=== PATIENT | female | born 1950 | race Caucasian/White ===

== ENCOUNTER → 2016-08-15 10:36 | Outpatient (CLI) | payer BC | END | disposition home or self-care (01) | LOC: D.CT 10:36 | DX: J18.9 Pneumonia, unspecified organism (principal); R06.02 Shortness of breath ==

== ENCOUNTER 2016-09-21 21:33 | Observation (INO) | payer BC ==
[~2016-09-21] VITALS: Ht 157.5 cm; Wt 106.8 kg
--- NOTE | ~2016-09-21 | HEMODYNAMI ---
PATIENT:BRYNN MAIER MEDICAL RECORD: [id number] : 48 LOCATION:[facility].[address] [facility]# [id number] ADMISSION DATE: 09/22/16 Generatedon:09/22/201615:11 Patient name: BRYNN MAIER Patient #: [id number] SSN: : 1950 Date of study: 09/22/2016 Page: Of Hemodynamic Procedure Report Patient Data Patient Demographics Procedure consent was obtained First Name: BRYNN Gender: Female Last Name: DARRION : 1950 [facility] Initial: J Age: 65 year(s) Patient #: [id number] Race: Unknown Additional ID: [id number] Contact details [address]: [address] [place] [address] State: [place] City: [place] Zip code: [address] Admission Admission Data Admission Date: 09/22/2016 Admission Time: 1:41 Room #: 2115 Procedure Procedure Types Cath Procedure Diagnostic Procedure LHC LHC w/Coronaries Miscellaneous Procedures Moderate Sedation up to 30 minutes Procedure Description Procedure Date Procedure Date: 09/22/2016 Procedure Start Time: 14:39 Procedure End Time: 15:10 Procedure Staff Name Function Estuardo Del Valle MD Performing Physician Vanita Kathleen RN Nurse Durga Huff RT Monitor Balaji Ha RT Scrub Procedure Data Cath Procedure Fluoroscopy Diagnostic fluoroscopy Total fluoroscopy Time: 7.7 time: 7.7 min min Diagnostic fluoroscopy Total fluoroscopy dose: dose: 1115 mGy 1115 mGy Contrast Material Contrast Material Type Amount (ml) Isovue 300 125 Entry Location Entry Primary Successful Side Size Upsize Upsize Entry Closure Moore ccessful Closure Location (Fr) 1 (Fr) 2 (Fr) Remarks Device Remarks Radial Right 6 Fr Mechanical artery Short Compression Femoral Right 5 Fr 7 Fr Exoseal artery Short Estimated blood loss: 10 ml Diagnostic catheters Device Type Used For End Catheter Placement Terumo 5Fr [place] 110cm Procedure catheter Cordis 5Fr JL 4.0 Procedure Catheter (MP) Cordis 5Fr 3DRC Catheter Procedure (MP) Cordis 5Fr Pigtail Procedure Catheter (MP) Procedure Complications No complications Procedure Medications Medication Administration Route Dosage Oxygen NC 2 l/min Heparin Flush Bag added to field 2 bags (1000units/500ml NS) Lidocaine 2% added to field 20 Radial Cocktail added to field 1 syringe (Verapomil 2mg/Nitro 400mcg/Heparin 1500units) Versed I.V. 1 mg Fentanyl I.V. 50 mcg Versed I.V. 1 mg Fentanyl I.V. 50 mcg Radial Cocktail I.A. 1 syringe (Verapomil 2mg/Nitro 400mcg/Heparin 1500units) Versed I.V. 0.5 mg Versed I.V. 0.5 mg Heparin Bolus I.V. 5000 units Integrilin (Bolus I.V. 9.5 ml 2mg/ml) Versed I.V. 0.5 mg Hemodynamics Rest Heart Rate: 89 (bpm) Pressure Samples Time Site Value (mmHg) Purpose Heart Use Rate(bpm) 14:50 LV 131/-14,8 Snapshot 92 14:50 AO 128/67(93) Pullback 94 14:50 LV 110/14,3 Pullback 94 14:54 AO 86/45(57) Snapshot 93 Gradients Valve Time Site 1 Site 2 Mean SEP/DFP Peak To Heart Use (mmHg) (sec/min) Peak Rate (mmHg) (bpm) Aortic 14:50 LV AO 0 94 110/14,3 128/67(93) Calculations Valve P-P Mean Valve Index Valve Source Name Gradient Area Flow (cm2) Aortic 0 0 Snapshots Pre Cath Intra NCS Post Cath Vital Signs Time Heart Resp SPO2 NIBP (mmHg) Rhythm Pain Sedation Rate (ipm) (%) Status Level (bpm) 14:31:52 96 18 97 132/76(96) NSR 0 (11) 10(A) , No pain 14:36:14 96 20 98 147/75(110) NSR 0 (11) 10(A) , No pain 14:40:30 93 16 96 96/73(91) NSR 0 (11) 9(A) , No pain 14:45:21 91 19 98 116/71(82) NSR 0 (11) 9(A) , No pain 14:49:39 93 18 97 108/66(81) NSR 0 (11) 9(A) , No pain 14:53:53 92 20 97 122/68(83) NSR 0 (11) 9(A) , No pain 14:58:07 93 18 98 100/61(80) NSR 0 (11) 9(A) , No pain 15:02:19 91 18 98 118/66(87) NSR 0 (11) 9(A) , No pain 15:06:37 90 18 98 111/72(92) NSR 0 (11) 10(A) , No pain Medications Time Medication Route Dose Verified Delivered Reason Note s Effectiveness by by 14:08:18 Oxygen NC 2 l/min Vanita Vanita used for Kathleen Kathleen transport medic RN 14:08:26 Heparin Flush added 2 bags Vanita Vanita used for Bag to Kathleen Kathleen procedure (1000units/500ml field RN RN NS) 14:08:37 Lidocaine 2% added 20ml Vanita Vanita used for to vial Kathleen Kathleen procedure field RN RN 14:22:37 Radial Cocktail added 1 Vanita Vanita used for (Verapomil to syringe Kathleen Kathleen procedure 2mg/Nitro field RN RN 400mcg/Heparin 1500units) 14:35:00 Versed I.V. 1 mg Vanita Vanita for sedation Kathleen Kathleen RN RN 14:35:07 Fentanyl I.V. 50 mcg Vanita Vanita for sedation Kathleen Kathleen RN RN 14:37:22 Versed I.V. 1 mg Vanita Vanita for sedation Kathleen Kathleen RN RN 14:37:26 Fentanyl I.V. 50 mcg Vanita Vanita for sedation Kathleen Kathleen RN RN 14:39:38 Versed I.V. 0.5 mg Vanita Vanita for sedation Kathleen Kathleen RN RN 14:39:40 Radial Cocktail I.A. 1 Vanita Estuardo for (Verapomil syringe Kathleen Eligio vasodilation 2mg/Nitro RN MD 400mcg/Heparin 1500units) 14:45:16 Versed I.V. 0.5 mg Vanita Vanita for sedation Kathleen Kathleen RN RN 14:51:20 Heparin Bolus I.V. 5000 Vanita Vanita for units Kathleen Kathleen anticoagulation RN RN 14:51:34 Integrilin I.V. 9.5 ml Vanita Vanita for (Bolus 2mg/ml) Frannie Kathleen antiplatelet RN RN therapy 14:51:52 Versed I.V. 0.5 mg Vanita Waldron for sedation Frannie Kathleen RN pressure control supervisor Log Time Note 13:52:32 Time tracking: Regular hours 13:52:37 Plan of Care:Hemodynamics will remain stable., Cardiac rhythm will remain stable., Comfort level will be maintained., Respiratory function will remain adequate., Patient/ family verbilizes understanding of procedure., Procedure tolerated without complication., Recovers from procedure without complications.. 13:52:40 Durga POP(R) sent for patient. Start room use. 14:08:18 Oxygen 2 l/min NC was administered by Vanita Kathleen RN; used for procedure; 14:08:26 Heparin Flush Bag (1000units/500ml NS) 2 bags added to field was administered by Vanita Kathleen RN; used for procedure; 14:08:37 Lidocaine 2% 20ml vial added to field was administered by Vanita Kathleen RN; used for procedure; 14:18:07 Patient received from PCU to [facility] 2 Alert and oriented. Tansferred to table in Supine position. 14:18:08 Warm blankets applied, and doris hugger turned on for patient comfort. 14:18:08 Correct patient and procedure confirmed by team. 14:18:09 Signed procedure consent form obtained from patient. 14:18:10 ECG and BP/O2 sat monitors applied to patient. 14:22:37 Radial Cocktail (Verapomil 2mg/Nitro 400mcg/Heparin 1500units) 1 syringe added to field was administered by Vanita Kathleen RN; used for procedure; 14:30:33 Vital chart was started 14:30:34 Baseline sample Acquired. 14:30:36 Baseline sample Acquired. 14:30:41 Rhythm: sinus rhythm 14:30:43 Full Disclosure recording started 14:30:48 H&P Date Dictated: 09/21/2016 Within 30 days and on chart., H&P Addendum completed by physician on day of procedure. (MUST COMPLETE FOR ALL OUTPATIENTS). 14:30:49 Pre-procedure instructions explained to patient. 14:30:49 Pre-op teaching completed and patient verbalized understanding. 14:30:51 Family in waiting room. 14:30:52 Patient NPO since Midnight. 14:30:55 Is the patient allergic to Iodine/contrast media? No. 14:31:04 Is patient on blood thinner?No 14:32:12 Patient diabetic? No. 14:32:15 Patient not . Patient is over age 55. 14:32:17 Previous problem with sedation/anesthesia? No ? 14:32:31 Snore? Yes 14:32:39 Sleep apnea? No 14:32:40 Deviated septum? No 14:32:41 Opens mouth fully? Yes 14:32:42 Sticks out tongue? Yes 14:32:57 Airway obstruction? No ? 14:33:00 Dentures? Yes IN 14:33:05 Pre procedure: right dorsailis pedis pulse 1+ Palpable, but thready & weak; easily obliterated 14:33:07 Modified Jason's test Ulnar < 7 seconds 14:33:12 Patient pain scale 0/10 ?. 14:33:16 IV patent on arrival in right forearm with 0.9% NaCl at O. 14:33:19 Lab results completed and on chart. 14:33:23 Right Radial & Right Groin area was prepped with chlora-prep and draped in sterile fashion 14:33:24 Alarms reviewed by R. N. 14:33:25 Sharps counted by scrub and verified by R.N. 14:34:16 --------ALL STOP TIME OUT------ 14:34:17 Final Timeout: patient, procedure, and site verified with staff and physician. All members of the team are in agreement. 14:34:19 Right Radial & Right Groin site verified by team. 14:34:22 Physical assessment completed. ASA score P 2 - A patient with mild systemic disease as per Estuardo Del Valle MD. 14:34:24 Sedation plan: IV Moderate Sedation Versed, Fentanyl 14:35:00 Versed 1 mg I.V. was administered by Vanita Kathleen RN; for sedation; 14:35:07 Fentanyl 50 mcg I.V. was administered by Vanita Kathleen RN; for sedation; 14:37:22 Versed 1 mg I.V. was administered by Vanita Kathleen RN; for sedation; 14:37:26 Fentanyl 50 mcg I.V. was administered by Vanita Kathleen RN; for sedation; 14:39:19 Procedure started. 14:39:24 Local anesthetic to right radial artery with Lidocaine 2% by Estuardo Del Valle MD.INITIAL ACCESS ONLY 14:39:38 Versed 0.5 mg I.V. was administered by Vanita Kathleen RN; for sedation; 14:39:40 Radial Cocktail (Verapomil 2mg/Nitro 400mcg/Heparin 1500units) 1 syringe I.A. was administered by Estuardo Del Valle MD; for vasodilation; 14:39:40 A 6 Fr Short sheath was inserted into the Right Radial artery 14:40:01 Use device set Radial Dx 14:40:02 Tegaderm 4 x 4 opened to sterile field. 14:40:03 Acist Hand Control opened to sterile field. 14:40:04 Acist Manifold opened to sterile field. 14:40:05 Acist Syringe opened to sterile field. 14:40:05 Medline Cath Pack opened to sterile field. 14:40:05 Bag Decanter opened to sterile field. 14:40:06 Terumo 6Fr Slender Glidesheath opened to sterile field. 14:40:06 St Kedar 260cm J .035 wire opened to sterile field. 14:40:07 MBrace Wrist Support opened to sterile field. 14:40:20 A Terumo 5Fr [place] 110cm catheter was advanced over the wire and used for Procedure. 14:41:33 Terumo ANGLE 260cm glide wire opened to sterile field. 14:43:02 Glidewire used to advance catheter. 14:43:51 Unable to advance catheter due to anantomy. Moving to Femoral approach. 14:43:56 Catheter removed. 14:44:05 Use device set Multipack Set 14:44:10 Terumo 5Fr [place] Sheath opened to sterile field. 14:44:11 Diagnostic Infinity 5Fr Multipack catheter opened to sterile field. 14:45:16 Versed 0.5 mg I.V. was administered by Vanita Kathleen RN; for sedation; 14:45:42 Local anesthetic to right femoral artery with Lidocaine 2% by Estuardo Del Valle MD.ADDITIONAL ACCESS 14:46:10 A 5 Fr sheath was inserted into the Right Femoral artery 14:46:16 A Cordis 5Fr JL 4.0 Catheter () was advanced over the wire and used for Procedure. 14:47:14 IV Extension Set opened to sterile field. 14:47:27 Catheter removed. 14:47:34 A Cordis 5Fr 3DRC Catheter (MP) was advanced over the wire and used for Procedure. 14:49:11 RCA angiography performed. 14:49:16 Catheter removed. 14:49:21 A Cordis 5Fr Pigtail Catheter (MP) was advanced over the wire and used for Procedure. 14:50:43 Terumo 7Fr [place] Sheath opened to sterile field. 14:50:44 Advice Walletisper J 300cm 0.014 guide wire opened to sterile field. 14:50:45 HistoRx Launcher 7Fr HS I SH guide catheter opened to sterile field. 14:50:49 Firstmonie BasixCompak Inflation Kit opened to sterile field. 14:51:03 LV angiography performed. 14:51:05 LV gram done using ANAYA 14:51:09 EF : 55 % 14:51:11 LV hemodynamics recorded. 14:51:13 Injector settings: Ml/sec: 10, Volume: 20, 14:51:14 Catheter removed. 14:51:20 Heparin Bolus 5000 units I.V. was administered by Vanita Kathleen RN; for anticoagulation; 14:51:33 Sheath upsized to a 7 Fr Short. 14:51:34 Integrilin (Bolus 2mg/ml) 9.5 ml I.V. was administered by Vanita Kathleen RN; for antiplatelet therapy; 14:51:52 Versed 0.5 mg I.V. was administered by Vanita Kathleen RN; for sedation; 14:52:16 7 Fr HS 1 SH guide catheter was inserted over the wire 14:52:44 Whisper wire advanced. 14:57:16 Wire advanced across lesion. 14:58:38 [place] 3.0x15 balloon advanced. 14:58:41 The [place] Sci [place] 3.0 X 15 balloon was advanced and then removed because of failure to cross lesion 15:00:53 [place] 1.5x15 balloon advanced. 15:01:55 The [place] Sci [place] 1.5 X 15 balloon was advanced and then removed because of failure to cross lesion 15:04:18 Wire removed. 15:04:18 Guide catheter removed. 15:04:28 Sheath removed intact; hemostasis achieved with Exoseal to the Right Femoral artery. 15:04:41 Cordis 7Fr Exoseal opened to sterile field. 15:04:54 Procedure ended.(Physican Out) 15:05:47 Fluoroscopy time 07.70 minutes. 15:05:53 Fluoroscopy dose: 1115 mGy 15:05:53 Flurop Dose total: 1115 15:06:01 Contrast amount:Isovue 300 125ml. 15:06:13 Sharps counted by scrub and verified by R.N. 15:06:22 Sheath removed intact; hemostasis achieved with Mechanical Compression to the Right Radial artery. 15:06:27 TR band inflated with 10cc of air. 15:06:28 Insertion/operative site no bleeding no hematoma. 15:06:31 Post-op/insertion site Right Femoral artery dressed using a 4 x 4 and Tegaderm. 15:06:32 Post Procedure Pulses reassessed and unchanged 15:06:34 Post-procedure physical assessment completed. ASA score P 2 - A patient with mild systemic disease as per Estuardo Del Valle MD. 15:06:37 Post procedure rhythm: unchanged. 15:06:39 Estimated blood loss: 10 ml 15:06:40 Post procedure instruction explained to patient.Patient verbalizes understanding. 15:06:41 Patient needs reinforcement of post procedure teaching. 15:06:57 Procedure type changed to Cath procedure, Diagnostic procedure, LHC, LHC w/Coronaries, Miscellaneous Procedures, Moderate Sedation up to 30 minutes 15:07:02 Procedure Complication : No complications 15:08:17 Procedure and supply charges have been captured, reviewed, submitted and are correct. 15:10:12 Vital chart was stopped 15:10:13 See physician's report for complete and final results. 15:10:21 Report given to PCU. 15:10:25 Patient transfered to PCU with Bed. 15:10:28 Procedure ended. 15:10:28 Full Disclosure recording stopped 15:10:54 End room use (Document Last) Intervention Summary Intervention Notes Time ActionType Lesion and Equipment Action# Pressure Duration Attributes Used 14:58:41 Discard [place] Balloon Sci [place] 3.0 X 15 balloon 15:01:55 Discard [place] Balloon Sci [place] 1.5 X 15 balloon Device Usage Item Name Manufacture Quantity Catalog Number Hospital Part Current Mini [facility] Lot# / Charge Number Stock Stock Serial# Code Tegaderm 4 3M 1 162 [id number] 456998 286829 5 x 4 Acist Hand Acist 1 71099 410726 432379 935835 5 Control Medical Systems Inc Acist Acist 1 86329 542788 203411 814843 5 Manifold Medical Systems Inc Acist Acist 1 67648 130557 709557 776489 20 Syringe Medical Systems Inc Medline Cardinal 1 [id number] 454755 77734 584579 5 Cath Pack Health Bag Microtek 1 2002S 709069 29807 006567 5 Decanter Medical Inc. Terumo 6Fr Terumo 1 [id number] 372945 521571 660068 [address] Kedar 1 351773 765118 844833 257613 30 260cm J .035 wire MBrace Advanced 1 140-0250-00 617499 39700 038923 5 Wrist Vascular Support Dynamics Terumo 5Fr Terumo 1 40-1612 477271 389248 742952 5 [place] 110cm catheter Terumo Terumo 1 [id number] 499832 081610 634511 5 ANGLE 260cm glide wire Terumo 5Fr Terumo 1 [id number] 024122 866313 223673 40 [place] Sheath Diagnostic Cardinal 1 [id number] 464748 76525 906155 30 Infinity Health 5Fr Multipack catheter Cordis 5Fr Cardinal 1 787774 5 JL 4.0 Health Catheter (MP) IV Hospira 1 89528-55 869718 90646 251199 5 Extension Set Cordis 5Fr Cardinal 1 587572 5 3DRC Health Catheter (MP) Cordis 5Fr Cardinal 1 307944 5 Pigtail Health Catheter (MP) Terumo 7Fr Terumo 1 NRP662 577729 601942 533466 5 [place] Sheath Nicole Nicole 1 [id number] 018665 571767 116326 5 Whisper J Vascular 300cm 0.014 guide wire Medtronic Medtronic 1 [id number] 543703 039355 156153 0 Launcher 7Fr HS I SH guide catheter Merit Merit 1 AL9251 496489 127038 982559 15 BasixBlockBeacon Medical Inflation Kit [place] Sci [place] 1 [id number] 170665 224863 790248 1 [id number] Neurolink 1.5 X 15 balloon [place] Sci [place] 1 [id number] 660351 561259 553815 1 [id number] [place] Scientific 3.0 X 15 balloon Cordis 7Fr Cardinal 1 EX700 700936 762269 249022 5 Exoseal Health Signature Audit Ault Stage Time Signature Unsigned Intra-Procedure 09/22/2016 Durga Huff 3:11:34 PM RT(R) Signatures Monitor : Durga Huff RT Signature : Date : Time : [place] [address] [place] [address]
[2016-09-22] LABS: HEMATOCRIT 38.1 % (36.0-48.0); LYMPHOCYTES 18.7 % (15-50); MCH 30.6 pg (26.0-34.0); MCHC 34.1 g/dL (31.0-37.0); MCV 89.6 fL (80.0-100.0); MEAN PLATELET VOLUME 8.7 fL (7.4-10.4); NEUTROPHILS 73.9 % (40-80); RBC 4.25 10x6/uL (4.00-5.40); RDW 13.1 % (11.5-14.5); WBC 14.3 10x3/uL (4.8-10.8)
[2016-09-22 00:07] LABS: PLATELET COUNT 313 10x3/uL (130-400)
[2016-09-22 00:32] LABS: ANION GAP 14.2 mmol/L (8-16); BILIRUBIN - TOTAL 0.76 mg/dL (0.2-1.3); CALCIUM 8.8 mg/dL (8.5-10.1); CARBON DIOXIDE 29.3 mmol/L (21.0-32.0); POTASSIUM - SERUM 3.5 mmol/L (3.5-5.1); PROTEIN - SERUM 7.7 g/dL (6.4-8.2)
[2016-09-22 00:45] LABS: TROPONIN-I 0.163 ng/mL (0.000-0.060)
--- NOTE | 2016-09-22 03:00 | NUR ---
RECIEVED TO ROOM 2114 FROM ER VIA . PT A&O. VITALS STABLE. 02 AT 2 LITER VIA NC. IV TO RIGHT FOREARM SL, SITE CLEAN AND DRY. PT DENIES HAVING ANY PAIN. MED REC AND HISTORY OBTAINED. WILL CONT TO MONITOR.
[2016-09-22] MEDS ORDERED: LASIX40 MG PO (03:05)
[2016-09-22] MEDS ORDERED: MIRAPEX1.5 MG PO (03:06)
[2016-09-22 03:42] VITALS: BP 155/71; Ht 157.5 cm; Wt 106.8 kg
--- NOTE | 2016-09-22 03:44 | NUR ---
PLACED ON TELEMETRY, 95 SR. WILL CONT TO MONITOR.
[2016-09-22 04:00] VITALS: BP 155/71
--- NOTE | 2016-09-22 07:30 | NUR ---
RECEIVED PT QUIETLY DENIES ANY NEEDS OR DISCOMFORT AT THIS TIME NAD NOTED
[2016-09-22 07:54] VITALS: BP 162/72
[2016-09-22 08:45] LABS: BASOPHILS 0.3 % (0-2); EOSINOPHILS 3.3 % (0-7); HEMATOCRIT 38.6 % (36.0-48.0); HEMOGLOBIN 12.6 g/dL (12-16); IMMATURE GRANULOCYTES 0.9 % (0-5); LYMPHOCYTES 20.7 % (15-50); MCH 30.9 pg (26.0-34.0); MCHC 32.6 g/dL (31.0-37.0); MEAN PLATELET VOLUME 10.1 fL (7.4-10.4); MONOCYTES 8.5 % (2-11); NEUTROPHILS 66.3 % (40-80); PLATELET COUNT 286 10x3/uL (130-400); RBC 4.08 10x6/uL (4.00-5.40); RDW 13.3 % (11.5-14.5); WBC 12.9 10x3/uL (4.8-10.8)
[2016-09-22 08:46] LABS: ANION GAP 13.8 mmol/L (8-16); CALCIUM 8.5 mg/dL (8.5-10.1); CARBON DIOXIDE 27.7 mmol/L (21.0-32.0); POTASSIUM - SERUM 3.5 mmol/L (3.5-5.1)
[2016-09-22 08:47] LABS: MCV 94.6 fL (80.0-100.0)
[2016-09-22 12:01] VITALS: BP 162/67
--- NOTE | 2016-09-22 14:25 | NUR ---
TO ACUTE CARE NURSE PRACTITIONER VIA BED IN STABLE CONDITION
--- NOTE | 2016-09-22 15:30 | NUR ---
RECEIVED PT BACK FROM DIGITAL PRODUCTION ARTIST VIA BED VSS RT WRIST TR BAND INTACT SITE NOTED WITH NO S/S OF BLEEDING RT GROIN DRSG CDI PPPX4 NO SIGNS BLEEDING
[2016-09-22 16:41] VITALS: BP 107/59
[2016-09-22 20:00] VITALS: BP 135/64
--- NOTE | 2016-09-22 20:39 | NUR ---
DR. TOURE FOR COUGH MEDICINE. AWAITING CALL BACK
[2016-09-23] VITALS: BP 145/68
--- NOTE | 2016-09-23 00:34 | NUR ---
PROTOTYPE ENGINEER MANAGER AT BEDSIDE TO OBTAIN VITALS, CALL LIGHT IN REACH. WILL CONTINUE WITH PLAN OF CARE.
--- NOTE | 2016-09-23 06:30 | NUR ---
NO CHANGES FROM PREVIOUS ASSESSMENT, CALL LIGHT IN REACH.
--- NOTE | 2016-09-23 07:30 | NUR ---
RECEIVED PT IN BED SITTING ON SIDE OF BED AAAOX4 RESP UNLABORED ON ROOM AIR DENIES ANY NEEDS OR DISCOMFORT NAD NOTED
[2016-09-23 08:25] VITALS: BP 139/82
--- NOTE | 2016-09-23 08:26 | OP ---
PATIENT NAME: BRYNN MAIER MEDICAL RECORD: [id number] :48 LOCATION:D.M2 D.2115 ADMISSION DATE:09/22/16 SURGEON: ERICA BE MD DATE OF OPERATION: 09/22/2016 PROCEDURES: Left heart catheterization, selective coronary angiography, right femoral artery approach. CATHETERS: A 5-Monegasque sheath, 5/4 left and right Tom, 5/4 pig. The procedure was well tolerated. The patient returned to escoto. Sheath was removed. ExoSeal device was placed. FINDINGS: Left ventriculography in 30-degree ANAYA view: Normal wall motion, normal systolic function. CORONARY ANATOMY: LEFT MAIN: Left main is free of disease. LAD: Free of disease in the diagonal system. CIRCUMFLEX: Free of disease in the marginal system. RIGHT CORONARY ARTERY: Dominant artery, gives rise to PDA, it is totally occluded and fills very well via [id number] collaterals. IMPRESSION: Single-vessel coronary artery disease. Given the elevated enzymes, we changed that for a 7-Monegasque sheath and I used a hockey stick guide catheter. We will place a Whisper wire across the totally occluded right; however, we were unable to place the balloon distally, more consistent with ____ occlusion. Procedure was stopped at this point. We will plan to treat medically. TRANSINT:[id number] Voice Confirmation ID: [id number] DOCUMENT ID: [id number] ERICA BE MD at 0826 CC: [id number] DICTATION DATE: 09/22/16 1508 HEEL FORMER: 09/23/16 0020 ADM IN [facility] [address] [place] [address]
[2016-09-23] MEDS ORDERED: ASPIRIN81 MG PO (09:52)
[2016-09-23] MEDS ORDERED: PLAVIX75 MG PO (09:53)
[2016-09-23] MEDS ORDERED: ZPAK PO (09:54)
[2016-09-23] MEDS ORDERED: LOPRESSOR25 MG PO (10:05)
[2016-09-23] MEDS ORDERED: ROBITUSSIN AC (10 M1 PO (10:11)
--- NOTE | 2016-09-23 11:13 | NUR ---
REVIEWED DISCHARGE INSTRUCTIONS WITH PT STATES UNDERSTANDING COPY GIVEN DCD SALINE LOCK TO RFA WITH IV CATHETER INTACT NO REDNESS OR EDEMA NOTED TO SITE PT DISCHARGED HOME IN STABLE CONDITION LEFT UNIT VIA W/C WITH ALL PERSONAL BELONGINGS
--- NOTE | 2016-09-26 13:19 | DS ---
PATIENT:BRYNN MAIER :[birth year] MEDICAL RECORD: [id number] DISCHARGE SUMMARY ADMISSION DATE: 09/22/16 DISCHARGE DATE: 09/23/16 DISCHARGE DIAGNOSES: 1. Acute coronary syndrome secondary to demand ischemia secondary to upper respiratory tract infection. 2. Probable obstructive coronary artery disease. 3. Acute viral bronchitis. BRIEF HISTORY AND HOSPITAL COURSE: The patient admitted with chest pain, cough, was found to have elevated cardiac enzymes, angiography showed totally occluded graft with left to right collaterals felt and no other significant coronary artery disease. LV function was normal, felt that this more demand ischemia, was started on oral antibiotics ____ and discharged home in good condition. Follow up with primary care myself in 1 month. DIET: AHA diet. She will be placed on beta sinan, Plavix empirically. TRANSINT:[id number] Voice Confirmation ID: [id number] DOCUMENT ID: [id number] ERICA BE MD at 1319 CC: [id number] DICTATION DATE: 09/23/16822 FLOODPLAIN MANAGER: 09/24/16 0241 DIS IN 09/23/16 [place] [address] [place] [address]
== END 2016-09-23 11:13 | disposition home or self-care (01) ==
LOC: D.ER 21:33 → D.M2 09-22 01:41 → OBSVTIME 09-22 01:41 → D.M2 09-23 11:13
PROVIDERS: Family Medicine; ADMIT Internal Medicine Interventional Cardiology
DX: J20.8 Acute bronchitis due to other specified organisms (principal); I25.10 Atherosclerotic heart disease of native coronary artery without angina pectoris; F17.200 Nicotine dependence, unspecified, uncomplicated; E66.9 Obesity, unspecified; Z68.41 Body mass index [BMI] 40.0-44.9, adult; I24.8 Other forms of acute ischemic heart disease

== ENCOUNTER 2016-10-03 08:00 | Outpatient (CLI) | payer BC ==
[~2016-10-03] VITALS: Ht 157.5 cm; Wt 104.5 kg
--- NOTE | ~2016-10-03 | HEMODYNAMI ---
PATIENT:BRYNN MAIER MEDICAL RECORD: [id number] : 48 LOCATION:[facility] ADMISSION DATE: 10/03/16 Generatedon:10/03/201611:17 Patient name: BRYNN MAIER Patient #: [id number] SSN: : 1950 Date of study: 10/03/2016 Page: Of Hemodynamic Procedure Report Patient Data Patient Demographics Procedure consent was obtained First Name: BRYNN Gender: Female Last Name: DARRION : 1950 [facility] Initial: J Age: 65 year(s) Patient #: [id number] Race: Unknown Additional ID: [id number] Contact details Address: [address] [place] [address] State: [place] City: [place] Zip code: [address] Admission Admission Data Admission Date: 10/03/2016 Admission Time: 8:00 Height (in.): 62 BSA: 2.03 (m2) Height (cm.): 157.48 BMI: 42.34 (kg/m2) Weight (lbs.): 231.49 Weight (kg.): 105 Procedure Procedure Types Cath Procedure PCI Procedure Coronary Atherectomy Atherectomy w/Stent Coronary Initial Miscellaneous Procedures Moderate Sedation up to 45 minutes Procedure Description Procedure Date Procedure Date: 10/03/2016 Procedure Start Time: 10:34 Procedure End Time: 11:16 Procedure Staff Name Function Vicente Marks MD Performing Physician Neela Meade RN Nurse Durga Huff RT Monitor Balaji Ha RT Scrub Procedure Data Cath Procedure Fluoroscopy Diagnostic fluoroscopy Total fluoroscopy Time: time: 16.5 min 16.5 min Diagnostic fluoroscopy Total fluoroscopy dose: dose: 1666 mGy 1666 mGy Contrast Material Contrast Material Type Amount (ml) Isovue 300 233 Entry Location Entry Primary Successful Side Size Upsize Upsize Entry Closure Moore ccessful Closure Location (Fr) 1 (Fr) 2 (Fr) Remarks Device Remarks Femoral Right 6 Fr Manual vein Short Compression Femoral Right 7 Fr Exoseal artery Short Estimated blood loss: 10 ml Procedure Complications No complications Procedure Medications Medication Administration Route Dosage Oxygen NC 2 l/min Heparin Flush Bag added to field 2 bags (1000units/500ml NS) Lidocaine 2% added to field 20 0.9% NaCl 1000 ml Versed I.V. 1 mg Fentanyl I.V. 50 mcg Versed I.V. 1 mg Fentanyl I.V. 50 mcg Heparin Bolus I.V. 4000 units Versed I.V. 1 mg Fentanyl I.V. 50 mcg Versed I.V. 0.5 mg Fentanyl I.V. 25 mcg Nitroglycerin IC/IA I.C. 100 mcg Versed I.V. 0.5 mg Fentanyl I.V. 25 mcg Fentanyl I.V. 25 mcg Heparin Bolus I.V. 3000 units Fentanyl I.V. 25 mcg Fentanyl I.V. 25 mcg Fentanyl I.V. 25 mcg Hemodynamics Rest BSA: 2.03 (m2) O2 Consumption: Estimated: 209.99 (ml/min) O2 Consumption indexed : Estimated:103.44 (ml/min/m) Heart Rate: 97 (bpm) Pressure Samples Time Site Value (mmHg) Purpose Heart Use Rate(bpm) 10:37 AO 105/46(71) Snapshot 86 10:51 AO 115/67(88) Snapshot 94 Snapshots Pre Cath Intra NCS Post Cath Vital Signs Time Heart Resp SPO2 etCO2 IZ4ndpm NIBP (mmHg) Rhythm Pain Sedation Rate (ipm) (%) (mmHg) (mmHg) Status Level (bpm) 10:21:35 102 16 99 0 0 149/88(117) NSR 0 (11) 10(A) , No pain 10:25:56 96 17 99 0 0 141/80(101) NSR 0 (11) 10(A) , No pain 10:30:12 90 16 99 0 0 116/66(92) NSR 0 (11) 10(A) , No pain 10:34:22 93 16 99 0 0 112/78(98) NSR 0 (11) 10(A) , No pain 10:38:27 98 15 98 0 0 93/57(69) NSR 0 (11) 9(A) , No pain 10:42:37 90 15 99 0 0 86/51(68) NSR 0 (11) 9(A) , No pain 10:46:41 91 16 100 0 0 101/57(82) NSR 0 (11) 9(A) , No pain 10:50:51 94 14 99 0 0 113/64(84) NSR 0 (11) 9(A) , No pain 10:55:01 97 14 100 0 0 122/79(105) NSR 0 (11) 9(A) , No pain 10:59:17 93 15 99 0 0 108/62(80) NSR 0 (11) 9(A) , No pain 11:03:27 98 15 100 0 0 120/69(93) NSR 0 (11) 9(A) , No pain 11:07:39 97 17 100 0 0 130/83(104) NSR 0 (11) 10(A) , No pain 11:11:54 98 13 100 0 0 123/79(97) NSR 0 (11) 10(A) , No pain 11:16:02 93 13 100 0 0 111/67(89) NSR 0 (11) 10(A) , No pain Medications Time Medication Route Dose Verified Delivered Reason Notes Effectiveness by by 10:22:49 Oxygen NC 2 Vicente Neela Per physician l/min Selina Meade RN 10:22:56 Heparin Flush added 2 Vicente Vicente used for Bag to bags Selina Marks MD procedure (1000units/500ml field NS) 10:23:06 0.9% NaCl 1000 Vicente Vicente used for 20 mL ml Selina Marks MD procedure viperslide added for diamondback 10:23:06 Lidocaine 2% added 20ml Vicente Vicente used for to vial Selina Marks MD procedure field 10:27:14 Versed I.V. 1 mg Vicente Neela for sedation Selina Meade RN 10:27:22 Fentanyl I.V. 50 Vicente Neela for sedation mcg Selina Meade RN 10:30:55 Versed I.V. 1 mg Vicente Neela for sedation Selina Meade RN 10:31:04 Fentanyl I.V. 50 Vicente Neela for sedation mcg Selina Meade RN 10:34:09 Versed I.V. 1 mg Vicente Neela for sedation Selina Meade RN 10:34:15 Fentanyl I.V. 50 Vicente Neela for sedation mcg Selina Meade RN 10:36:28 Versed I.V. 0.5 Vicente Neela for sedation mg Selina Meade RN 10:36:33 Fentanyl I.V. 25 Vicente Neela for sedation mcg Selina Meade RN 10:36:56 Heparin Bolus I.V. 4000 Vicente Neela for dose units Selina Meade RN anticoagulation verified wtih dr marks 10:50:40 Versed I.V. 0.5 Vicente Neela for sedation mg Selina Meade RN 10:50:46 Fentanyl I.V. 25 Vicente Neela for sedation mcg Selina Meade RN 10:52:54 Fentanyl I.V. 25 Vicente Neela for sedation mcg Selina Meade RN 10:55:04 Nitroglycerin I.C. 100 Vicente Vicente for IC/IA mcg Selina jurado 10:57:37 Heparin Bolus I.V. 3000 Vicente Neela for dose units Selina Meade RN anticoagulation verified with dr marks 11:00:44 Fentanyl I.V. 25 Vicente Neela for sedation mcg Selina Meade RN 11:02:00 Fentanyl I.V. 25 Vicente Neela for sedation mcg Selina Meade RN 11:04:11 Fentanyl I.V. 25 Vicente Neela for sedation mcg Selina Meade RN Procedure Log Time Note 9:50:00 Balaji Ha RT(R) sent for patient. Start room use. 10:06:43 Patient Height : 62 cm 10:06:51 Patient Weight : 231.49 kg 10:07:01 Time tracking: Regular hours 10:07:06 Plan of Care:Hemodynamics will remain stable., Cardiac rhythm will remain stable., Comfort level will be maintained., Respiratory function will remain adequate., Patient/ family verbilizes understanding of procedure., Procedure tolerated without complication., Recovers from procedure without complications.. 10:10:39 Patient received from Pre/Post Procedure Room to CCL 1 Alert and oriented. Tansferred to table in Supine position. 10:10:40 Warm blankets applied, and doris hugger turned on for patient comfort. 10:10:40 Correct patient and procedure confirmed by team. 10:10:41 Signed procedure consent form obtained from patient. 10:10:42 ECG and BP/O2 sat monitors applied to patient. 10:20:27 Vital chart was started 10:20:28 Baseline sample Acquired. 10:20:33 Rhythm: sinus rhythm 10:20:35 Full Disclosure recording started 10:20:42 H&P Date Dictated: 09/27/2016 Within 30 days and on chart., H&P Addendum completed by physician on day of procedure. (MUST COMPLETE FOR ALL OUTPATIENTS). 10:20:43 Pre-procedure instructions explained to patient. 10:20:43 Pre-op teaching completed and patient verbalized understanding. 10:20:44 Family in waiting room. 10:20:45 Patient NPO since Midnight. 10:20:47 Is the patient allergic to Iodine/contrast media? No. 10:20:48 Is patient on blood thinner?Yes 10:20:51 ACC The patient was administered the following blood thiners within the last 24 hours: ACCPlavix 10:20:54 Patient diabetic? No. 10:20:55 Patient not . Patient is over age 55. 10:20:57 Previous problem with sedation/anesthesia? No ? 10:20:59 Snore? Yes 10:21:02 Sleep apnea? No 10:21:03 Deviated septum? No 10:21:04 Opens mouth fully? Yes 10:21:05 Sticks out tongue? Yes 10:21:06 Airway obstruction? No ? 10:21:10 Dentures? No ? 10:21:19 Pre procedure: right dorsailis pedis pulse 1+ Palpable, but thready & weak; easily obliterated 10:21:20 Patient pain scale 0/10 ?. 10:21:32 IV patent on arrival in left forearm with 0.9% NaCl at [facility]. 10:21:34 Lab results completed and on chart. 10:21:36 Right groin area was prepped with chlora-prep and draped in sterile fashion 10:21:37 Alarms reviewed by R. N. 10:21:38 Sharps counted by scrub and verified by R.N. 10:21:41 Use device set Femoral PCI 10:21:42 Tegaderm 4 x 4 opened to sterile field. 10:21:43 Acist Manifold opened to sterile field. 10:21:45 Acist Syringe opened to sterile field. 10:21:45 Acist Hand Control opened to sterile field. 10:21:46 Bag Decanter opened to sterile field. 10:21:46 Medline Cath Pack opened to sterile field. 10::46 Terumo 6Fr [employer] Sheath opened to sterile field. 10::47 St Kedar 260cm J .035 wire opened to sterile field. 10::47 Merit BasixCompak Inflation Kit opened to sterile field. 10:22:10 VIPER .014 335 CM guide wire opened to sterile field. 10:22:23 5Fr J Tip Temporary Pacing Catheter opened to sterile field. 10:22:49 Oxygen 2 l/min NC was administered by Neela Meade RN; Per physician; 10::56 Heparin Flush Bag (1000units/500ml NS) 2 bags added to field was administered by Vicente Marks MD; used for procedure; 10:23:06 0.9% NaCl 1000 ml was administered by Vicente Marks MD; used for procedure; 20 mL viperslide added for diamondback 10:23:06 Lidocaine 2% 20ml vial added to field was administered by Vicente Marks MD; used for procedure; 10:25:18 Diamondback 360 1.25 SOLID Atherectomy catheter opened to sterile field. 10:26:53 --------ALL STOP TIME OUT------ 10:26:53 Final Timeout: patient, procedure, and site verified with staff and physician. All members of the team are in agreement. 10:26:56 Right groin site verified by team. 10:26:58 Physical assessment completed. ASA score P 2 - A patient with mild systemic disease as per Vicente Marks MD. 10:27:01 Sedation plan: IV Moderate Sedation Versed, Fentanyl 10:27:14 Versed 1 mg I.V. was administered by Neela Meade RN; for sedation; 10:27:22 Fentanyl 50 mcg I.V. was administered by Neela Meade RN; for sedation; 10:30:55 Versed 1 mg I.V. was administered by Neela Meade RN; for sedation; 10:31:04 Fentanyl 50 mcg I.V. was administered by Neela Meade RN; for sedation; 10:34:09 Versed 1 mg I.V. was administered by Neela Meade RN; for sedation; 10:34:15 Fentanyl 50 mcg I.V. was administered by Neela Meade RN; for sedation; 10:34:17 Zero performed for pressure channel P1 10:34:39 Terumo 7Fr [employer] Sheath opened to sterile field. 10:34:49 Medtronic Launcher 6Fr HS II SH guide catheter opened to sterile field. 10:34:54 Procedure started. 10:34:58 Local anesthetic to right femoral artery with Lidocaine 2% by Vicente Marks MD.INITIAL ACCESS ONLY 10:35:42 A 6 Fr Short sheath was inserted into the Right Femoral vein 10:35:54 A 7 Fr Short sheath was inserted into the Right Femoral artery 10:36:12 7 Fr HS 2 SH guide catheter was inserted over the wire 10:36:28 Versed 0.5 mg I.V. was administered by Neela Meade RN; for sedation; 10:36:33 Fentanyl 25 mcg I.V. was administered by Neela Meade RN; for sedation; 10:36:56 Heparin Bolus 4000 units I.V. was administered by Neela Meade RN; for anticoagulation; dose verified wtih dr marks 10:37:30 Temporary pacer inserted 10:38:50 Temporary pacer turned on with the following settings: Rate 50, MA 5, Mode: Demand. 10:39:00 Viper wire advanced. 10:41:43 Wire advanced across lesion. 10:41:49 ACC PCI Site: pRCA has 95% stenosis. 10:42:43 Diamondback advanced over the wire. 10:44:33 Multiple passes made with the Diamondback on Low and High. 10:49:38 Diamondback removed over the wire. 10:50:21 Walworth 1.5x20 advanced to exchange Viper wire for Choice PT XS. 10:50:34 [place] Sci Choice PT Extra Support J 300cm .014 gu opened to sterile field. 10:50:40 Versed 0.5 mg I.V. was administered by Neela Meade RN; for sedation; 10:50:46 Fentanyl 25 mcg I.V. was administered by Neela Meade RN; for sedation; 10:51:52 Inflation number: 1 A [place] Sci Walworth 1.5 X 20 balloon was prepped and advanced across the Prox RCA, then inflated to 21 SUMMER for 0:10 (min:sec). 10:52:39 Balloon removed over the wire. 10:52:54 Fentanyl 25 mcg I.V. was administered by Neela Meade RN; for sedation; 10:53:53 Inflation number: 2 A Euphora 3.0 x 20 Balloon was prepped and advanced across the Prox RCA, then inflated to 13 SUMMER for 0:10 (min:sec). 10:55:04 Nitroglycerin IC/IA 100 mcg I.C. was administered by Vicente Marks MD; for vasodilation; 10:55:57 Inflation number: 1 The Euphora 3.0 x 20 Balloon was reinflated across the Mid RCA, to 7 SUMMER for 0:10 (min:sec). 10:56:19 Inflation number: 1 The Euphora 3.0 x 20 Balloon was reinflated across the Dist RCA, to 11 SUMMER for 0:10 (min:sec). 10:56:47 Balloon removed over the wire. 10:57:37 Heparin Bolus 3000 units I.V. was administered by Neela Meade RN; for anticoagulation; dose verified with dr marks 10:58:24 Inflation Number: 2 A Medtronic Resolute 3.0 X 15 stent was prepped and advanced across the Dist RCA. The stent was deployed at 13 SUMMER for 0:10 (min:sec). 10:58:41 Stent catheter was removed intact over wire. 11:00:44 Fentanyl 25 mcg I.V. was administered by Neela Meade RN; for sedation; 11:00:55 Inflation Number: 3 A Medtronic Resolute 3.5 X 38 stent was prepped and advanced across the Prox RCA. The stent was deployed at 17 SUMMER for 0:10 (min:sec). 11:01:43 Stent catheter was removed intact over wire. 11:02:00 Fentanyl 25 mcg I.V. was administered by Neela Meade RN; for sedation; 11:03:51 Inflation Number: 2 A Medtronic Resolute 3.5 X 15 stent was prepped and advanced across the Mid RCA. The stent was deployed at 15 SUMMER for 0:10 (min:sec). 11:04:11 Fentanyl 25 mcg I.V. was administered by Neela Meade RN; for sedation; 11:04:16 Stent catheter was removed intact over wire. 11:04:27 Wire removed. 11:04:28 Guide catheter removed. 11:04:47 Temporary pacer turn off 11:04:47 Temporary pacer removed 11:04:54 Cordis 6Fr Exoseal opened to sterile field. 11:05:50 Sheath removed intact; hemostasis achieved with Exoseal to the Right Femoral artery. 11:06:13 Sheath removed intact; hemostasis achieved with Manual Compression to the Right Femoral vein. 11:06:16 Procedure ended.(Physican Out) 11:06:53 Fluoroscopy time 16.50 minutes. 11:06:56 Fluoroscopy dose: 1666 mGy 11:06:56 Flurop Dose total: 1666 11:06:59 Contrast amount:Isovue 300 233ml. 11:07:00 Sharps counted by scrub and verified by R.N. 11:07:02 Insertion/operative site no bleeding no hematoma. 11:07:04 Post-op/insertion site Right Femoral artery dressed using a 4 x 4 and Tegaderm. 11:07:05 Post Procedure Pulses reassessed and unchanged 11:07:08 Post-procedure physical assessment completed. ASA score P 2 - A patient with mild systemic disease as per Vicente Marks MD. 11:07:10 Post procedure rhythm: unchanged. 11:07:13 Estimated blood loss: 10 ml 11:07:15 Post procedure instruction explained to patient.Patient verbalizes understanding. 11:07:15 Patient needs reinforcement of post procedure teaching. 11:07:41 Procedure type changed to Cath procedure, PCI procedure, Coronary Atherectomy, Atherectomy w/Stent Coronary Initial, Miscellaneous Procedures, Moderate Sedation up to 45 minutes 11:07:46 Procedure Complication : No complications 11:11:12 Procedure and supply charges have been captured, reviewed, submitted and are correct. 11:15:32 Vital chart was stopped 11:15:33 See physician's report for complete and final results. 11:16:38 Report given to Pre/Post Procedure Room. 11:16:43 Patient transfered to Pre/Post Procedure Room with Stretcher. 11:16:46 Procedure ended. 11:16:46 Full Disclosure recording stopped 11:16:49 End room use (Document Last) Intervention Summary Intervention Notes Time ActionType Lesion and Equipment Action# Pressure Duration Attributes Used 10:51:52 Inflate Prox RCA [place] 1 21 00:10 balloon Sci Walworth 1.5 X 20 balloon 10:53:53 Inflate Prox RCA Euphora 2 13 00:10 balloon 3.0 x 20 Balloon 10:55:57 Reinflate Mid RCA Euphora 1 7 00:10 balloon 3.0 x 20 Balloon 10:56:19 Reinflate Dist RCA Euphora 1 11 00:10 balloon 3.0 x 20 Balloon 10:58:24 Place stent Dist RCA Medtronic 2 13 00:10 Resolute 3.0 X 15 stent 11:00:55 Place stent Prox RCA Medtronic 3 17 00:10 Resolute 3.5 X 38 stent 11:03:51 Place stent Mid RCA Medtronic 2 15 00:10 Resolute 3.5 X 15 stent Device Usage Item Name Manufacture Quantity Catalog Number Hospital Part Current M inimal Lot# / Charge Number Stock Stock Serial# Code Tegaderm 4 1 [id number] [id number] 087040 128739 5 x 4 Acist Acist Medical 1 00869 315905 211741 231084 5 Manifold Systems Inc Acist Acist Medical 1 37435 772843 620732 346841 2 0 Syringe Systems Inc Acist Hand Acist Medical 1 20314 472739 671574 500082 5 Control Systems Inc Bag Microtek 1 2002S 773543 55165 155844 5 Jetbay Inc. Medline Cardinal 1 [id number] 536695 16387 845418 5 kSARIA Terumo 6Fr Terumo 1 SBI018 369715 919087 467546 [address] [employer] [address] Kedar 1 962488 627651 906922 386928 3 0 260cm J .035 wire [facility] 1 [id number] 057738 335435 908262 1 5 BasDropmysite Inflation Kit VIPER .014 Cardiovascular 1 [id number] 681086 680443 5 335 CM systems guide wire 5Fr J Tip Silvestre 1 [id number] 831666 33172 322930 2 Temporary Lifesciences Pacing Catheter Diamondback Cardiovascular 1 [id number] 406669 5 360 1.25 systems SOLID Atherectomy catheter Terumo 7Fr Terumo 1 [id number] 266724 133155 656051 5 [employer] Sheath Medtronic Medtronic 1 [id number] 361502 03580 934502 1 Launcher 6Fr HS II SH guide catheter [place] Sci [place] 1 [id number] 593367 098389 631857 5 Choice PT Scientific Extra Support J 300cm .014 gu [place] Sci [place] 1 [id number] 822463 134208 857834 1 Red Tricycle 1.5 X 20 balloon Euphora 3.0 Medtronic 1 [id number] 705251 532462 475596 5 x 20 Balloon Medtronic Medtronic 1 [id number] 513071 151229 5 [id number] Resolute 3.0 X 15 stent Medtronic Medtronic 1 [id number] 076141 086485 0 [id number] Resolute 3.5 X 38 stent Medtronic Medtronic 1 [id number] 823224 875547 3 [id number] Resolute 3.5 X 15 stent Cordis 6Fr Cardinal 1 [id number] 693720 659821 194471 1 0 [facility] Signature Audit [place] Stage Time Signature Unsigned Intra-Procedure 10/03/2016 Durga Huff 11:17:05 AM RT(R) Signatures Monitor : Durga Huff RT Signature : Date : Time : [id number] [place] [address]
[~2016-10-03 08:00] MED LIST: ASPIRIN81 MG PO; LASIX40 MG PO; LOPRESSOR25 MG PO; MIRAPEX1.5 MG PO; PLAVIX75 MG PO; ROBITUSSIN AC (10 M1 PO; ZPAK PO
[2016-10-03 09:22] VITALS: BP 118/70; Ht 157.5 cm; Wt 104.5 kg
[2016-10-03 09:34] LABS: BASOPHILS 0.2 % (0-2); EOSINOPHILS 3.7 % (0-7); HEMATOCRIT 40.8 % (36.0-48.0); HEMOGLOBIN 13.5 g/dL (12-16); IMMATURE GRANULOCYTES 0.5 % (0-5); LYMPHOCYTES 25.6 % (15-50); MCH 31.1 pg (26.0-34.0); MCHC 33.1 g/dL (31.0-37.0); MEAN PLATELET VOLUME 9.3 fL (7.4-10.4); MONOCYTES 5.9 % (2-11); NEUTROPHILS 64.1 % (40-80); PLATELET COUNT 276 10x3/uL (130-400); RBC 4.34 10x6/uL (4.00-5.40); RDW 13.3 % (11.5-14.5); WBC 8.4 10x3/uL (4.8-10.8)
[2016-10-03 10:13] LABS: CALC OSMOLALITY 284 mosm/kg (275-300); CALCIUM 9.2 mg/dL (8.5-10.1); CARBON DIOXIDE 28.9 mmol/L (21.0-32.0); CHLORIDE - SERUM 104 mmol/L (98-107); CREATININE - SERUM 0.8 mg/dL (0.6-1.3); POTASSIUM - SERUM 3.8 mmol/L (3.5-5.1); SODIUM 142 mmol/L (136-145); UREA NITROGEN 14 mg/dL (7-18); eGFR NON AFRICAN AMERICAN 76 mL/min (90-120)
[2016-10-03 10:14] LABS: GLUCOSE 112 mg/dL (74-106)
--- NOTE | 2016-10-03 11:45 | NUR ---
1145-RIGHT GROIN CDI, NO HEMATOMA OR BLEEDING NOTED, SOFT TO TOUCH, FAMILY AT SIDE
--- NOTE | 2016-10-03 12:15 | NUR ---
NO CHANGES IN RIGHT GROIN, FAMILY AT SIDE. DENIES NEEDS
--- NOTE | 2016-10-04 18:08 | OP ---
PATIENT NAME: BRYNN MAIER MEDICAL RECORD: [id number] :48 LOCATION:D.CAT ADMISSION DATE: SURGEON: LAURY CAZARES MD DATE OF OPERATION: 10/03/2016 PROCEDURES: 1. Diamondback atherectomy, RCA. 2. PTCA stent, RCA. 3. Selective coronary angiography. INDICATION: Angina and coronary artery disease. PROCEDURE IN DETAIL: After informed consent was obtained and after detailed explanation of risks, benefits as well as alternative therapies, the patient elected to proceed with angiogram and angioplasty. The right femoral area was prepped and draped in normal sterile fashion. The right femoral artery was cannulated via modified Seldinger technique with placement of a 7-[place] sheath. All catheters exchanged through this sheath. The right femoral vein cannulated via modified Seldinger technique with placement of temporary pacemaker during the case. All catheters removed, sheaths also removed. Hemostasis was obtained via ExoSeal and direct compression. The patient tolerated the procedure well with no complication, returned back to the room in stable hemodynamic condition. FINDINGS: The right coronary has multiple areas of 90% to 95% stenosis. This was addressed with a Diamondback atherectomy followed by 3.5 x 38, 3.5 x 15, 3.0 x 15 Resolute stents. Result was 0% residual stenosis. OVERALL IMPRESSION: Successful percutaneous transluminal coronary angioplasty stent of the right coronary artery going from 95% initial stenosis to 0% residual. TRANSINT:[id number] Voice Confirmation ID: [id number] DOCUMENT ID: [id number] LAURY CAZARES MD at 1808 CC: [id number] DICTATION DATE: 10/03/16 1109 PROFESSIONAL SYSTEM ADMINISTRATOR: 10/03/161954 DEP CLI 10/03/16 [id number] [place] [address]
== END 2016-10-03 15:30 | disposition home or self-care (01) ==
LOC: D.CATH 08:00
PROVIDERS: Internal Medicine Interventional Cardiology
DX: I25.119 Atherosclerotic heart disease of native coronary artery with unspecified angina pectoris (principal)

== ENCOUNTER → 2018-05-30 09:06 | Outpatient (CLI) | payer BC ==
[2016-10-03 09:22] VITALS: BMI 42.1
--- NOTE | 2018-06-05 10:22 | ST ---
PATIENT:BRYNN MAIER MEDICAL RECORD: [id number] SEX: F LOCATION:[facility] ORDER #: ADMISSION DATE: 05/30/18 AGE OF PATIENT: 67 REFERRING PHYSICIAN: INTERPRETING PHYSICIAN: LAURY CAZARES MD DATE OF SERVICE: 05/30/2018 PROCEDURE: Nuclear stress test. INDICATION: Angina, hypertension. PROCEDURE: The patient was exercised on standard Lexiscan protocol with 32 mCi of sestamibi injected at peak stress. Rest images were done previously with 10 mCi. FINDINGS: Gated SPECT reveals a preserved ejection fraction at 66% with decreased thickening and brightening throughout the inferior segments. SPECT IMAGING: Cardiolite was used as myocardial perfusion agent. There is a fixed perfusion defect inferiorly compatible with previous inferior myocardial infarction; however, there is reversibility anteriorly and apically. This includes the basal, mid, apical anterior segments as well as the apex itself. The degree of reversibility is mild. The amount of myocardium involved between the 2 defects is large. OVERALL IMPRESSION: This is an abnormal nuclear stress test suggestive of previous inferior myocardial infarction, ongoing anterior ischemia. Would proceed with coronary angiography as followup study. TRANSINT:[id number] Voice Confirmation ID: [id number] DOCUMENT ID: [id number] LAURY CAZARES MD at 1022 CC: JASPAL HUYNH [id number] DICTATION DATE: 05/30/18 1535 BUILDING CONSTRUCTION SUPERVISOR: 05/31/18 0737 [facility] CLI 05/30/18 [id number] [place] [address]
== END | disposition home or self-care (01) ==
LOC: D.HCCARDIO 05-24 08:30
DX: I25.119 Atherosclerotic heart disease of native coronary artery with unspecified angina pectoris (principal)

== ENCOUNTER → 2019-03-04 11:46 | Outpatient (CLI) | payer BC ==
[2016-10-03 09:22] VITALS: BMI 42.1
== END | disposition home or self-care (01) ==
LOC: D.MRI 11:30
PROVIDERS: ATTEND Clinical Nurse Specialist Family Health
DX: M79.642 Pain in left hand (principal)

== ENCOUNTER → 2019-03-20 13:55 | Outpatient (CLI) | payer BC ==
[2016-10-03 09:22] VITALS: BMI 42.1
== END | disposition home or self-care (01) ==
LOC: D.MRI 13:55
PROVIDERS: ATTEND Orthopaedic Surgery
DX: S56.31 Strain of extensor or abductor muscles, fascia and tendons of thumb at forearm level (principal)